=== PATIENT | female | born 1995 | race Caucasian/White ===

== ENCOUNTER 2016-09-22 19:57 | Emergency (ER) | payer OTHER | END 2016-09-22 22:38 | disposition left against medical advice (07) | LOC: M ED 19:57 | DX: Z53.29 Procedure and treatment not carried out because of patient's decision for other reasons (principal) ==

== ENCOUNTER → 2016-12-19 | Outpatient (REF) | payer OTHER | LOC: M SFHCLERA 09:54 | PROVIDERS: ATTEND Physician Assistant | DX: R30.0 Dysuria (principal) ==